=== PATIENT | female | born 1945 | race Hispanic/Latino ===

== ENCOUNTER → 2017-12-15 | Outpatient (CLI) | payer OTHER, MEDICARE ==
[~2017-12-15] MED LIST: ATOR10TA69 PO; BUDE10.2 IH; CHOL100040 PO; DEXL60CA3 PO; GLIP5POW MC; INSU100V12 SQ; LEVO50TA11 PO; LISI10TA7 PO; MELO-106 PO; NAPR-1023 PO; OMEP40CA37 PO; TRAZ-144 PO
== END | disposition home or self-care (01) ==
LOC: RAH 08:49
PROVIDERS: ATTEND Family Medicine
DX: R13.10 Dysphagia, unspecified (principal); T17.308A Unspecified foreign body in larynx causing other injury, initial encounter; X58.XXXA Exposure to other specified factors, initial encounter; Y93.89 Activity, other specified; Y92.89 Other specified places as the place of occurrence of the external cause; Y99.8 Other external cause status
CPT/HCPCS: 74230; 92611; G8996; G8997; G8998

== ENCOUNTER 2018-01-28 14:44 | Inpatient (IN) | payer OTHER, MEDICARE ==
[~2018-01-28] VITALS: Ht 149.9 cm; Wt 69.4 kg
[~2018-01-28 14:44] MED LIST changes: -BUDE10.2 IH; -CHOL100040 PO; -NAPR-1023 PO; -TRAZ-144 PO
[2018-01-28 15:27] LABS: BASOPHILS % (AUTO) 0.6 % (0.0-5.0); EOSINOPHILS % (AUTO) 0.8 % (0.0-8.0); HEMATOCRIT 42.5 % (36-48); LYMPHOCYTES % (AUTO) 30.4 % (21.0-51.0); MEAN CORPUSCULAR HEMOGLOBIN 27.4 pg (27.0-33.0); MEAN CORPUSCULAR HGB CONC 32.7 g/dL (32.0-36.0); MEAN CORPUSCULAR VOLUME 83.8 fL (79-99); MONOCYTES % (AUTO) 6.4 % (3.0-13.0); NEUTROPHILS % (AUTO) 61.8 % (40.0-77.0); PLATELET COUNT (AUTO) 273 K/uL (130-400); RED BLOOD CELL COUNT(AUTO) 5.07 MIL/uL (4.00-5.50); RED CELL DISTRIBUTION WIDTH 15.4 % (11.0-15.5); WHITE BLOOD COUNT (AUTO) 11.6 K/uL (4.8-10.8)
[2018-01-28] MEDS ORDERED: ASPIRIN 325 MG TABLET ONE (15:40)
[2018-01-28] MEDS ORDERED: SODIUM CHLORIDE 0.9% 250 ML IV ONE (15:41)
[2018-01-28 15:42] LABS: INR 0.96 (0.85-1.15); PARTIAL THROMBOPLASTIN TIME 25.4 SEC (26.3-35.5); POTASSIUM 4.6 mmol/L (3.5-5.1); PROTHROMBIN TIME 10.1 SEC (9.6-11.6)
[2018-01-28 15:47] LABS: ALBUMIN 4.1 g/dL (3.5-5.0); BILIRUBIN,TOTAL 0.3 mg/dL (0.2-1.0)
[2018-01-28] MEDS ORDERED: SODIUM CHLORIDE 0.9% 1000ML 1,000 ML IV ONE (17:29)
[2018-01-28] MEDS ORDERED: KETOROLAC TROMETHAMINE 15MG/ML ONE (18:35)
[2018-01-28] MEDS ORDERED: DEXTROSE 50%-WATER 50 ML DISP.SYRIN IV PRN (22:45)
[2018-01-28] MEDS ORDERED: GLUCAGON 1MG KIT 1 MG ML IM PRN (22:45)
[2018-01-28 23:46] VITALS: BP 153/65
[2018-01-29 03:34] VITALS: BP 154/57
[2018-01-29 03:50] LABS: HEMATOCRIT 37.3 % (36-48); MEAN CORPUSCULAR HEMOGLOBIN 27.9 pg (27.0-33.0); MEAN CORPUSCULAR HGB CONC 33.6 g/dL (32.0-36.0); NUCLEATED RED BLOOD CELLS 0.1 % (0.0-0.19); PLATELET COUNT (AUTO) 225 K/uL (130-400); RED BLOOD CELL COUNT(AUTO) 4.49 MIL/uL (4.00-5.50); RED CELL DISTRIBUTION WIDTH 15.6 % (11.0-15.5); WHITE BLOOD COUNT (AUTO) 7.9 K/uL (4.8-10.8)
[2018-01-29 04:17] LABS: HEMOGLOBIN A1C 9.5 % (4.0-6.0)
[2018-01-29 04:24] LABS: CREATININE 0.8 mg/dL (0.5-1.5); POTASSIUM 4.2 mmol/L (3.5-5.1); THYROID STIMULATING HORMONE 1.49 uIU/mL (0.36-3.74)
[2018-01-29] MEDS: INSULIN HUMULIN R 100 UNIT/ML 3ML SQ SCH ×4 (05:55→21:29)
[2018-01-29 07:00] VITALS: BP 175/70
[2018-01-29] MEDS: ENOXAPARIN SODIUM 40 MG/0.4 ML SYRINGE SQ SCH (08:19)
[2018-01-29] MEDS ORDERED: TRAZ-144 PO (08:41)
[2018-01-29] MEDS ORDERED: NAPR-1023 PO (08:41)
[2018-01-29] MEDS ORDERED: BUDE10.2 IH (08:41)
[2018-01-29] MEDS ORDERED: CHOL100040 PO (08:41)
[2018-01-29] MEDS ORDERED: NAPROXEN 500 MG TABLET PO PRN (08:45)
[2018-01-29] MEDS ORDERED: TRAZODONE HCL 50 MG TAB PO PRN (08:45)
[2018-01-29] MEDS ORDERED: HOME MEDICATION 1 EACH PO PRN (08:45)
[2018-01-29] MEDS: LEVOTHYROXINE 50 MCG TABLET PO SCH (08:56)
[2018-01-29] MEDS: CHOLECALCIFEROL 1000 UNIT PO SCH (09:00)
[2018-01-29] MEDS: LISINOPRIL 10 MG TABLET PO SCH (09:00)
[2018-01-29 11:00] VITALS: BP 164/73
[2018-01-29] MEDS ORDERED: HYDRALAZINE HCL 20 MG/ML VIAL IM PRN (11:15)
[2018-01-29 16:00] VITALS: BP 147/70
[2018-01-29 19:00] VITALS: BP 153/68
[2018-01-29] MEDS: ATORVASTATIN CALCIUM 10 MG TABLET PO SCH (20:37)
[2018-01-29] MEDS ORDERED: LORAZEPAM 1 MG TABLET PO ONE (22:30)
[2018-01-29 23:10] VITALS: BP 143/68
[2018-01-30 03:17] VITALS: BP 161/63
[2018-01-30 04:42] LABS: HEMATOCRIT 39.2 % (36-48); MEAN CORPUSCULAR HEMOGLOBIN 27.4 pg (27.0-33.0); MEAN CORPUSCULAR HGB CONC 32.8 g/dL (32.0-36.0); MEAN CORPUSCULAR VOLUME 83.6 fL (79-99); PLATELET COUNT (AUTO) 233 K/uL (130-400); RED BLOOD CELL COUNT(AUTO) 4.69 MIL/uL (4.00-5.50); RED CELL DISTRIBUTION WIDTH 15.5 % (11.0-15.5); WHITE BLOOD COUNT (AUTO) 6.7 K/uL (4.8-10.8)
[2018-01-30 04:55] LABS: CREATININE 0.8 mg/dL (0.5-1.5); POTASSIUM 4.1 mmol/L (3.5-5.1)
[2018-01-30 05:03] LABS: BAND NEUTROPHILS % (MANUAL) 8 % (0-2); EOSINOPHILS % (MANUAL) 1 % (1-6); LYMPHOCYTES % (MANUAL) 16 % (22-44); MAN.DIFF COMMENT-IMPRESSION MANUAL DIFFERENTIAL; MONOCYTES % (MANUAL) 7 % (2-9); PLATELET MORPHOLOGY COMMENT ADEQUATE; SEGMENTED NEUTROPHILS % 68 % (40-70)
[2018-01-30] MEDS: LEVOTHYROXINE 50 MCG TABLET PO SCH (05:32)
[2018-01-30] MEDS: INSULIN HUMULIN R 100 UNIT/ML 3ML SQ SCH ×4 (05:46→21:16)
[2018-01-30 06:54] VITALS: BP 147/75
[2018-01-30] MEDS ORDERED: LORAZEPAM 1 MG TABLET PO SCH (08:45)
[2018-01-30] MEDS: CHOLECALCIFEROL 1000 UNIT PO SCH (09:00)
[2018-01-30] MEDS: LISINOPRIL 10 MG TABLET PO SCH (09:57)
[2018-01-30] MEDS: ENOXAPARIN SODIUM 40 MG/0.4 ML SYRINGE SQ SCH (09:57)
[2018-01-30] MEDS: GLIPIZIDE 5 MG TABLET PO SCH ×2 (09:57→15:36)
[2018-01-30 11:00] VITALS: BP 175/75
[2018-01-30] MEDS ORDERED: CLOPIDOGREL BISULFATE 75 MG TAB PO SCH (15:30)
[2018-01-30] MEDS ORDERED: ASPIRIN 81MG TAB.CHEW PO SCH (15:30)
[2018-01-30 16:00] VITALS: BP 148/76
[2018-01-30 19:33] VITALS: BP 139/69
[2018-01-30] MEDS: ATORVASTATIN CALCIUM 10 MG TABLET PO SCH (21:13)
[2018-01-31 04:01] LABS: HEMATOCRIT 39.1 % (36-48); MEAN CORPUSCULAR HEMOGLOBIN 27.5 pg (27.0-33.0); MEAN CORPUSCULAR VOLUME 83.3 fL (79-99); PLATELET COUNT (AUTO) 242 K/uL (130-400); RED BLOOD CELL COUNT(AUTO) 4.69 MIL/uL (4.00-5.50); RED CELL DISTRIBUTION WIDTH 15.4 % (11.0-15.5); WHITE BLOOD COUNT (AUTO) 7.6 K/uL (4.8-10.8)
[2018-01-31 04:08] VITALS: BP 118/61
[2018-01-31 04:16] LABS: EOSINOPHILS % (MANUAL) 6 % (1-6); LYMPHOCYTES % (MANUAL) 44 % (22-44); MAN.DIFF COMMENT-IMPRESSION MANUAL DIFFERENTIAL; MONOCYTES % (MANUAL) 8 % (2-9); PLATELET MORPHOLOGY COMMENT ADEQUATE; SEGMENTED NEUTROPHILS % 42 % (40-70)
[2018-01-31 04:32] LABS: CREATININE 0.8 mg/dL (0.5-1.5)
[2018-01-31] MEDS: LEVOTHYROXINE 50 MCG TABLET PO SCH (06:07)
[2018-01-31] MEDS: GLIPIZIDE 5 MG TABLET PO SCH ×2 (06:10→15:44)
[2018-01-31] MEDS: INSULIN HUMULIN R 100 UNIT/ML 3ML SQ SCH ×3 (06:10→16:34)
[2018-01-31 07:00] VITALS: BP 167/64
[2018-01-31] MEDS ORDERED: ASPIRIN 81MG TAB.CHEW PO SCH (09:00)
[2018-01-31] MEDS ORDERED: CLOPIDOGREL BISULFATE 75 MG TAB PO SCH (09:00)
[2018-01-31] MEDS ORDERED: PANTOPRAZOLE SODIUM 40 MG TABLET.DR PO SCH (09:00)
[2018-01-31] MEDS: CHOLECALCIFEROL 1000 UNIT PO SCH (09:00)
[2018-01-31 11:00] VITALS: BP 145/58
[2018-01-31] MEDS: LISINOPRIL 10 MG TABLET PO SCH (12:06)
[2018-01-31] MEDS: ENOXAPARIN SODIUM 40 MG/0.4 ML SYRINGE SQ SCH (12:07)
[2018-01-31 16:00] VITALS: BP 145/64
[2018-01-31 19:30] VITALS: BP 147/63
== END 2018-01-31 21:19 | DRG 69 ==
LOC: EDH 14:44 → EDHIP 21:00 → 2DH 23:45
PROVIDERS: ADMIT Internal Medicine Nephrology; ATTEND Internal Medicine Nephrology
DX: G45.9 Transient cerebral ischemic attack, unspecified (principal); E11.9 Type 2 diabetes mellitus without complications; E03.9 Hypothyroidism, unspecified; E78.5 Hyperlipidemia, unspecified; I10 Essential (primary) hypertension; G51.0 Bell's palsy; Z79.4 Long term (current) use of insulin; Z88.0 Allergy status to penicillin
CPT/HCPCS: 36415; 70450; 70544; 70547; 70551; 74230; 80048; 80053; 80061; 82948; 83036; 84443; 84484; 85025; 85027; 85610; 85730; 92610; 92611; 93005; 93306; 99291; J1650; J1815; J1885; J7030

== ENCOUNTER → 2019-12-11 | Outpatient (CLI) | payer OTHER, MEDICARE ==
[~2019-12-11] MED LIST changes: +AEC81 PO; +ALBUHFA IH; -ATOR10TA69 PO; +AZIT250T9 PO; +BENZ-51 PO; +CHOL100040 PO; +CLOP75TA32 PO; +FLUT1AER IH; +GABA-529 PO; -GLIP5POW MC; +GLIP5TAB11 PO; -INSU100V12 SQ; +INSU3INS9 SQ; -MELO-106 PO; +METH4TAB15 PO; -OMEP40CA37 PO
== END | disposition home or self-care (01) ==
LOC: RAH 10:45
PROVIDERS: ATTEND Internal Medicine Medical Oncology
DX: D35.02 Benign neoplasm of left adrenal gland (principal); D35.01 Benign neoplasm of right adrenal gland; N28.1 Cyst of kidney, acquired; E27.8 Other specified disorders of adrenal gland
CPT/HCPCS: 76770

== ENCOUNTER → 2020-01-16 | Outpatient (CLI) | payer OTHER, MEDICARE | END | disposition home or self-care (01) | LOC: RAH 11:33 | PROVIDERS: ATTEND Internal Medicine | DX: E04.1 Nontoxic single thyroid nodule (principal) | CPT/HCPCS: 76536 ==

== ENCOUNTER 2020-04-24 06:40 | Emergency (ER) | payer OTHER, MEDICARE ==
[2020-04-24] MEDS ORDERED: ORPHENADRINE CITRATE 30 MG/ML ML ONE (07:35)
[2020-04-24] MEDS ORDERED: KETOROLAC TROMETHAMINE 15MG/ML ONE (07:35)
== END 2020-04-24 08:42 | disposition home or self-care (01) ==
LOC: EDH 06:40
DX: M54.16 Radiculopathy, lumbar region (principal); E11.9 Type 2 diabetes mellitus without complications; I10 Essential (primary) hypertension; E78.5 Hyperlipidemia, unspecified; E03.9 Hypothyroidism, unspecified; Z90.49 Acquired absence of other specified parts of digestive tract; Z90.710 Acquired absence of both cervix and uterus; Z98.890 Other specified postprocedural states; Z88.0 Allergy status to penicillin; Z79.899 Other long term (current) drug therapy
CPT/HCPCS: 72100; 73502; 96374; 96375; 99284; J1885; J2360

== ENCOUNTER 2020-04-28 07:46 | Emergency (ER) | payer OTHER, MEDICARE ==
[2020-04-28 08:26] LABS: BASOPHILS % (AUTO) 0.5 % (0.0-5.0); HEMATOCRIT 37.8 % (36-48); LYMPHOCYTES % (AUTO) 32.9 % (21.0-51.0); MEAN CORPUSCULAR HEMOGLOBIN 27.7 pg (27.0-33.0); MEAN CORPUSCULAR HGB CONC 32.5 g/dL (32.0-36.0); MEAN CORPUSCULAR VOLUME 85.1 fL (79-99); MONOCYTES % (AUTO) 10.6 % (3.0-13.0); NEUTROPHILS % (AUTO) 54.7 % (40.0-77.0); PLATELET COUNT (AUTO) 275 K/uL (130-400); RED BLOOD CELL COUNT(AUTO) 4.44 MIL/uL (4.00-5.50); RED CELL DISTRIBUTION WIDTH 14.6 % (11.0-15.5); WHITE BLOOD COUNT (AUTO) 9.6 K/uL (4.8-10.8)
[2020-04-28 08:44] LABS: CREATININE 0.9 mg/dL (0.5-1.5); POTASSIUM 4.5 mmol/L (3.5-5.1)
[2020-04-28 08:49] LABS: ALBUMIN 3.3 g/dL (3.5-5.0); BILIRUBIN,TOTAL 0.3 mg/dL (0.2-1.0); TOTAL PROTEIN, SERUM 6.8 g/dL (6.0-8.3)
[2020-04-28 09:12] LABS: APPEARANCE,URINE Clear (CLEAR); BILIRUBIN,URINE Negative (NEGATIVE); COLOR,URINE Yellow (YELLOW); GLUCOSE, URINE (UA) Negative (NEGATIVE); KETONES,URINE Negative (NEGATIVE); LEUKOCYTE ESTERASE ,URINE Moderate (NEGATIVE); NITRATE,URINE Negative (NEGATIVE); OCCULT BLOOD,URINE Negative (NEGATIVE); PROTEIN,URINE Negative (NEGATIVE); UROBILINOGEN,URINE 0.2 mg/dL (0.2-1.0)
[2020-04-28 09:19] LABS: BACTERIA,URINE Rare /HPF (None Seen); RBC,URINE None Seen /HPF (0-1)
[2020-04-28] MEDS ORDERED: HYOSCYAMINE SULFATE 0.125 MG TAB.SUBL SL ONE (10:06)
[2020-04-28] MEDS ORDERED: KETOROLAC TROMETHAMINE 15MG/ML ONE (10:06)
[2020-04-28] MEDS ORDERED: CEPHALEXIN 500 MG CAPSULE ONE (10:43)
[2020-04-28] MEDS ORDERED: DOCUSATE SODIUM 100 MG CAP PO ONE (10:43)
== END 2020-04-28 11:25 | disposition home or self-care (01) ==
LOC: EDH 07:46
DX: N39.0 Urinary tract infection, site not specified (principal); M54.5 Low back pain; K59.00 Constipation, unspecified; I10 Essential (primary) hypertension; E11.9 Type 2 diabetes mellitus without complications; E78.5 Hyperlipidemia, unspecified; E03.9 Hypothyroidism, unspecified; Z88.0 Allergy status to penicillin
CPT/HCPCS: 36415; 71045; 74176; 80053; 81001; 82550; 83880; 84484; 85025; 87088; 93005; 96374; 99285; J1885

== ENCOUNTER → 2021-01-09 | Outpatient (CLI) | payer OTHER, MEDICARE ==
[~2021-01-09] MED LIST changes: +LISI10TA24 PO; -LISI10TA7 PO
== END | disposition home or self-care (01) ==
LOC: RAH 13:24
PROVIDERS: ATTEND Obstetrics & Gynecology
DX: R10.813 Right lower quadrant abdominal tenderness (principal); Z90.710 Acquired absence of both cervix and uterus
CPT/HCPCS: 76856

== ENCOUNTER → 2021-01-15 | Outpatient (CLI) | payer OTHER, MEDICARE | END | disposition home or self-care (01) | LOC: RAH 10:55 | PROVIDERS: ATTEND Otolaryngology | DX: K21.9 Gastro-esophageal reflux disease without esophagitis (principal); R13.12 Dysphagia, oropharyngeal phase | CPT/HCPCS: 74230; 92611 ==

== ENCOUNTER 2022-05-25 03:02 | Emergency (ER) | payer OTHER, MEDICARE ==
[~2022-05-25] VITALS: Ht 149.9 cm; Wt 70.3 kg
[~2022-05-25 03:02] MED LIST changes: -BENZ-51 PO; +BENZ-70 PO
[2022-05-25 03:36] LABS: BASOPHILS % (AUTO) 0.3 % (0.0-5.0); EOSINOPHILS % (AUTO) 0.2 % (0.0-8.0); HEMATOCRIT 40.4 % (36-48); LYMPHOCYTES % (AUTO) 26.5 % (21.0-51.0); MEAN CORPUSCULAR HEMOGLOBIN 27.2 pg (27.0-33.0); MEAN CORPUSCULAR HGB CONC 32.7 g/dL (32.0-36.0); MEAN CORPUSCULAR VOLUME 83.3 fL (79-99); MONOCYTES % (AUTO) 5.6 % (3.0-13.0); NEUTROPHILS % (AUTO) 67.1 % (40.0-77.0); PLATELET COUNT (AUTO) 259 K/uL (130-400); RED BLOOD CELL COUNT(AUTO) 4.85 MIL/uL (4.00-5.50); RED CELL DISTRIBUTION WIDTH 14.8 % (11.0-15.5); WHITE BLOOD COUNT (AUTO) 12.1 K/uL (4.8-10.8)
[2022-05-25 03:40] LABS: APPEARANCE,URINE CLEAR (CLEAR); BILIRUBIN,URINE NEGATIVE (NEGATIVE); COLOR,URINE YELLOW (YELLOW); GLUCOSE, URINE (UA) 100 mg/dL (NEGATIVE); KETONES,URINE 5 mg/dL (NEGATIVE); LEUKOCYTE ESTERASE ,URINE NEGATIVE (NEGATIVE); NITRATE,URINE NEGATIVE (NEGATIVE); OCCULT BLOOD,URINE LARGE (NEGATIVE); PH,URINE 5.5 (5.0-8.0); PROTEIN,URINE 30 mg/dL (NEGATIVE); UROBILINOGEN,URINE 0.2 mg/dL (0.2-1.0)
[2022-05-25 03:50] LABS: CREATININE 1.1 mg/dL (0.5-1.5); POTASSIUM 4.6 mmol/L (3.5-5.1)
[2022-05-25 03:54] LABS: ALBUMIN 3.3 g/dL (3.5-5.0); TOTAL PROTEIN, SERUM 6.8 g/dL (6.0-8.3)
[2022-05-25] MEDS ORDERED: HYDROMORPHONE 0.5 MG SYG (0.5MG/0.5ML) IVP ONE (04:00)
[2022-05-25] MEDS ORDERED: IBUP-1493 PO (04:34)
[2022-05-25] MEDS ORDERED: FAMO-136 PO (04:35)
[2022-05-25 04:41] VITALS: BP 163/59
== END 2022-05-25 04:46 | disposition home or self-care (01) ==
LOC: EDH 03:02
DX: K80.50 Calculus of bile duct without cholangitis or cholecystitis without obstruction (principal); E11.9 Type 2 diabetes mellitus without complications; I10 Essential (primary) hypertension; E03.9 Hypothyroidism, unspecified; Z88.0 Allergy status to penicillin; Z79.899 Other long term (current) drug therapy; Z79.82 Long term (current) use of aspirin; Z79.84 Long term (current) use of oral hypoglycemic drugs; Z98.890 Other specified postprocedural states
CPT/HCPCS: 99284; 96374; 76705; 80053; 83690; 85025; 81003; 36415; J1170

== ENCOUNTER 2022-05-31 10:39 | Inpatient (IN) | payer OTHER, MEDICARE ==
[~2022-05-31] VITALS: Ht 149.9 cm; Wt 75.5 kg
[~2022-05-31 10:39] MED LIST changes: +FAMO-136 PO; +IBUP-1493 PO
[2022-05-31 12:24] LABS: BILIRUBIN,URINE Negative (NEGATIVE); COLOR,URINE Yellow (YELLOW); GLUCOSE, URINE (UA) TRACE mg/dL (NEGATIVE); KETONES,URINE 15 mg/dL (NEGATIVE); LEUKOCYTE ESTERASE ,URINE Trace (NEGATIVE); NITRATE,URINE Negative (NEGATIVE); OCCULT BLOOD,URINE Large (NEGATIVE); PH,URINE 5.5 (5.0-8.0); PROTEIN,URINE POS 2+ mg/dL (NEGATIVE); UROBILINOGEN,URINE 0.2 mg/dL (0.2-1.0)
[2022-05-31] MEDS ORDERED: 0.9%NACL 1000ML 1,000 ML IV SCH (12:30)
[2022-05-31] MEDS ORDERED: ONDANSETRON 4MG INJ IVP ONE (12:30)
[2022-05-31] MEDS ORDERED: FAMOTIDINE 20MG VIAL IV ONE (12:30)
[2022-05-31 12:32] LABS: APPEARANCE,URINE CLEAR (CLEAR)
[2022-05-31 12:35] LABS: BASOPHILS % (AUTO) 0.3 % (0.0-5.0); EOSINOPHILS % (AUTO) 0.5 % (0.0-8.0); HEMATOCRIT 36.1 % (36-48); LYMPHOCYTES % (AUTO) 10.6 % (21.0-51.0); MEAN CORPUSCULAR HEMOGLOBIN 27.3 pg (27.0-33.0); MEAN CORPUSCULAR HGB CONC 32.7 g/dL (32.0-36.0); MEAN CORPUSCULAR VOLUME 83.6 fL (79-99); NEUTROPHILS % (AUTO) 83.1 % (40.0-77.0); PLATELET COUNT (AUTO) 243 K/uL (130-400); RED BLOOD CELL COUNT(AUTO) 4.32 MIL/uL (4.00-5.50); RED CELL DISTRIBUTION WIDTH 14.7 % (11.0-15.5)
[2022-05-31 12:46] LABS: WBC,URINE 0-1 /HPF (0-1)
[2022-05-31 12:47] LABS: BACTERIA,URINE Rare /HPF (None Seen); SQUAMOUS EPITHELIAL CELL,UR Rare /HPF (0-2)
[2022-05-31] MEDS ORDERED: KETOROLAC 15MG/ML VIAL (15MG/ML) IV ONE (13:00)
[2022-05-31] MEDS ORDERED: DiphenhydrAMINE HCL 50 MG/ML VIAL IV ONE (13:00)
[2022-05-31 13:57] LABS: ALANINE AMINOTRANSFERASE 15 U/L (12-78); ALBUMIN 3.1 g/dL (3.5-5.0); ASPARTATE AMINOTRANSFERASE 17 U/L (10-37); CARBON DIOXIDE 24 mmol/L (21-32); CHLORIDE 103 mmol/L (101-111); CREATININE 1.9 mg/dL (0.5-1.5); GLOMERULAR FILTR. RATE CALC 27 mL/min (>60); GLUCOSE,RANDOM 159 mg/dL (70-105); POTASSIUM 4.9 mmol/L (3.5-5.1); SODIUM SERUM 137 mmol/L (136-145); UREA NITROGEN, BLOOD 33 mg/dL (7-18)
[2022-05-31 14:04] LABS: LIPASE < 50 U/L (114-286)
[2022-05-31] MEDS ORDERED: IOHEXOL 350 MG/ML 100ML INFUS..BTL IV ONE (14:09)
[2022-05-31] MEDS ORDERED: LIDOCAINE HCL-MPF 1% 2ML VIAL IV PRN ×2 (16:30)
[2022-05-31] MEDS ORDERED: TEMAZEPAM 15 MG CAPSULE PO PRN (16:30)
[2022-05-31] MEDS ORDERED: DOCUSATE SODIUM 100 MG CAP PO PRN (16:30)
[2022-05-31] MEDS ORDERED: CLONIDINE HCL 0.1 MG TABLET PO PRN (16:30)
[2022-05-31] MEDS ORDERED: POTASSIUM CHLORIDE 10MEQ/100ML 100 ML IV PRN ×2 (16:30)
[2022-05-31] MEDS ORDERED: DEXTROSE 50%-WATER 50 ML DISP.SYRIN IV PRN (16:30)
[2022-05-31] MEDS ORDERED: ACETAMINOPHEN 650 MG SUPPOSITORY RC PRN (16:30)
[2022-05-31] MEDS ORDERED: KCL 20 MEQ ERTAB PO PRN (16:30)
[2022-05-31] MEDS: INSULIN HUMULIN R 100 UNIT/ML 3ML SQ SCH ×2 (16:30→21:00)
[2022-05-31] MEDS ORDERED: LEVOFLOXACIN 500 MG/D5W 100 ML IV SCH (16:30)
[2022-05-31] MEDS ORDERED: HYDRALAZINE 20MG/ML VIAL IV PRN (16:30)
[2022-05-31] MEDS ORDERED: HYDROMORPHONE 1 MG INJ IVP PRN (16:30)
[2022-05-31] MEDS ORDERED: ACETAMINOPHEN 325 MG TAB PO PRN (16:30)
[2022-05-31] MEDS ORDERED: POTASSIUM CHLORIDE 10% ELIXIR 20 MEQ/15 ML UDCUP PO PRN (16:30)
[2022-05-31] MEDS ORDERED: GLUCAGON 1MG KIT 1 MG ML IM PRN (16:30)
[2022-05-31] MEDS ORDERED: HYDROMORPHONE 0.5 MG SYG (0.5MG/0.5ML) IVP PRN (17:00)
[2022-05-31] MEDS ORDERED: TAMS-1 PO (17:39)
[2022-05-31] MEDS ORDERED: GABA-529 PO (17:39)
[2022-05-31] MEDS: 0.9%NACL 1000ML 1,000 ML IV SCH (18:22)
[2022-05-31] MEDS ORDERED: LEVOFLOXACIN 500 MG/D5W 100 ML 100 ML ONE (19:02)
[2022-05-31 23:40] VITALS: BP 133/51
[2022-06-01 03:58] VITALS: BP 119/39
[2022-06-01 04:59] LABS: HEMATOCRIT 31.7 % (36-48); MEAN CORPUSCULAR HEMOGLOBIN 26.9 pg (27.0-33.0); MEAN CORPUSCULAR HGB CONC 31.9 g/dL (32.0-36.0); MEAN CORPUSCULAR VOLUME 84.3 fL (79-99); RED BLOOD CELL COUNT(AUTO) 3.76 MIL/uL (4.00-5.50); RED CELL DISTRIBUTION WIDTH 15.2 % (11.0-15.5); WHITE BLOOD COUNT (AUTO) 8.5 K/uL (4.8-10.8)
[2022-06-01 05:11] LABS: CREATININE 1.5 mg/dL (0.5-1.5); PHOSPHORUS 3.4 mg/dL (2.5-4.9); POTASSIUM 4.4 mmol/L (3.5-5.1)
[2022-06-01] MEDS: INSULIN HUMULIN R 100 UNIT/ML 3ML SQ SCH ×4 (06:52→23:29)
[2022-06-01 07:47] LABS: INR 1.01 (0.85-1.15)
[2022-06-01 07:49] LABS: PARTIAL THROMBOPLASTIN TIME 29.3 SEC (26.3-35.5)
[2022-06-01 08:00] VITALS: BP 139/68
[2022-06-01] MEDS: TAMSULOSIN HCL 0.4 MG CAP.ER.24H PO SCH (09:00)
[2022-06-01] MEDS: POLYETHYLENE GLYCOL 3350 17 GM POWD.PACK PO SCH (09:00)
[2022-06-01] MEDS: PANTOPRAZOLE 40 MG/VIAL IVP SCH (09:42)
[2022-06-01] MEDS: 0.9%NACL 1000ML 1,000 ML IV SCH ×2 (09:44→18:22)
[2022-06-01 11:46] VITALS: BP 137/51
[2022-06-01 16:00] VITALS: BP 149/62
[2022-06-01] MEDS: ALBUTEROL 0.083% 2.5 MG/3 ML INH IH SCH ×2 (18:20→22:54)
[2022-06-01] MEDS: LEVOFLOXACIN 250 MG/D5W 50ML 50 ML IVPB SCH (18:22)
[2022-06-01 20:15] VITALS: BP 146/65
[2022-06-01 23:39] VITALS: BP 151/47
[2022-06-02] MEDS: ALBUTEROL 0.083% 2.5 MG/3 ML INH IH SCH ×3 (02:20→10:25)
[2022-06-02 03:53] VITALS: BP 119/43
[2022-06-02 05:26] LABS: BASOPHILS % (AUTO) 0.4 % (0.0-5.0); EOSINOPHILS % (AUTO) 0.7 % (0.0-8.0); LYMPHOCYTES % (AUTO) 20.5 % (21.0-51.0); MEAN CORPUSCULAR HEMOGLOBIN 27.4 pg (27.0-33.0); MEAN CORPUSCULAR HGB CONC 32.3 g/dL (32.0-36.0); MEAN CORPUSCULAR VOLUME 84.9 fL (79-99); MONOCYTES % (AUTO) 12.3 % (3.0-13.0); NEUTROPHILS % (AUTO) 65.7 % (40.0-77.0); PLATELET COUNT (AUTO) 240 K/uL (130-400); RED BLOOD CELL COUNT(AUTO) 3.65 MIL/uL (4.00-5.50); RED CELL DISTRIBUTION WIDTH 15.3 % (11.0-15.5); WHITE BLOOD COUNT (AUTO) 10.1 K/uL (4.8-10.8)
[2022-06-02 05:42] LABS: ALBUMIN 2.4 g/dL (3.5-5.0); CREATININE 1.2 mg/dL (0.5-1.5); MAGNESIUM 1.8 mg/dL (1.80-2.40); POTASSIUM 4.2 mmol/L (3.5-5.1); TOTAL PROTEIN, SERUM 5.9 g/dL (6.0-8.3)
[2022-06-02] MEDS: INSULIN HUMULIN R 100 UNIT/ML 3ML SQ SCH ×4 (06:08→21:04)
[2022-06-02 07:02] VITALS: BP 139/53
[2022-06-02] MEDS: TAMSULOSIN HCL 0.4 MG CAP.ER.24H PO SCH (10:06)
[2022-06-02] MEDS: POLYETHYLENE GLYCOL 3350 17 GM POWD.PACK PO SCH (10:06)
[2022-06-02] MEDS: PANTOPRAZOLE 40 MG/VIAL IVP SCH (10:06)
[2022-06-02 12:03] VITALS: BP 160/75
[2022-06-02 16:03] VITALS: BP 163/68
[2022-06-02] MEDS: LEVOFLOXACIN 250 MG/D5W 50ML 50 ML IVPB SCH (18:16)
[2022-06-02] MEDS: 0.9%NACL 1000ML 1,000 ML IV SCH (21:04)
[2022-06-02 21:41] VITALS: BP 160/65
[2022-06-03 00:01] VITALS: BP 140/57
[2022-06-03 04:39] VITALS: BP 154/60
[2022-06-03 05:22] LABS: BASOPHILS % (AUTO) 0.5 % (0.0-5.0); EOSINOPHILS % (AUTO) 1.4 % (0.0-8.0); HEMATOCRIT 31.7 % (36-48); LYMPHOCYTES % (AUTO) 20.8 % (21.0-51.0); MEAN CORPUSCULAR HEMOGLOBIN 27.3 pg (27.0-33.0); MEAN CORPUSCULAR HGB CONC 32.2 g/dL (32.0-36.0); MEAN CORPUSCULAR VOLUME 84.8 fL (79-99); MONOCYTES % (AUTO) 11.8 % (3.0-13.0); NEUTROPHILS % (AUTO) 64.9 % (40.0-77.0); PLATELET COUNT (AUTO) 240 K/uL (130-400); RED BLOOD CELL COUNT(AUTO) 3.74 MIL/uL (4.00-5.50); RED CELL DISTRIBUTION WIDTH 15.2 % (11.0-15.5); WHITE BLOOD COUNT (AUTO) 10.1 K/uL (4.8-10.8)
[2022-06-03 05:43] LABS: ALBUMIN 2.4 g/dL (3.5-5.0)
[2022-06-03] MEDS: INSULIN HUMULIN R 100 UNIT/ML 3ML SQ SCH ×4 (06:35→21:05)
[2022-06-03 07:02] VITALS: BP 137/62
[2022-06-03] MEDS: PANTOPRAZOLE 40 MG/VIAL IVP SCH (10:13)
[2022-06-03] MEDS: TAMSULOSIN HCL 0.4 MG CAP.ER.24H PO SCH (10:28)
[2022-06-03] MEDS: POLYETHYLENE GLYCOL 3350 17 GM POWD.PACK PO SCH (10:28)
[2022-06-03 16:00] VITALS: BP 145/43
[2022-06-03] MEDS: LEVOFLOXACIN 250 MG/D5W 50ML 50 ML IVPB SCH (18:12)
[2022-06-03 20:26] VITALS: BP 147/59
[2022-06-04] VITALS (14 sets, daily range): BP systolic 140–167; BP diastolic 42–65
[2022-06-04 05:16] LABS: BASOPHILS % (AUTO) 0.4 % (0.0-5.0); EOSINOPHILS % (AUTO) 1.9 % (0.0-8.0); HEMATOCRIT 29.3 % (36-48); LYMPHOCYTES % (AUTO) 20.9 % (21.0-51.0); MEAN CORPUSCULAR HEMOGLOBIN 27.3 pg (27.0-33.0); MEAN CORPUSCULAR HGB CONC 32.4 g/dL (32.0-36.0); MEAN CORPUSCULAR VOLUME 84.2 fL (79-99); MONOCYTES % (AUTO) 11.8 % (3.0-13.0); NEUTROPHILS % (AUTO) 64.4 % (40.0-77.0); PLATELET COUNT (AUTO) 233 K/uL (130-400); RED BLOOD CELL COUNT(AUTO) 3.48 MIL/uL (4.00-5.50); RED CELL DISTRIBUTION WIDTH 15.2 % (11.0-15.5)
[2022-06-04 05:31] LABS: ALBUMIN 2.2 g/dL (3.5-5.0); CREATININE 0.9 mg/dL (0.5-1.5); POTASSIUM 3.8 mmol/L (3.5-5.1); TOTAL PROTEIN, SERUM 5.8 g/dL (6.0-8.3)
[2022-06-04] MEDS: INSULIN HUMULIN R 100 UNIT/ML 3ML SQ SCH ×4 (06:32→22:07)
[2022-06-04] MEDS ORDERED: LIDOCAINE HCL 1% 10 ML VIAL ONE (08:28)
[2022-06-04] MEDS ORDERED: IODIXANOL 320 MG/ML 100 ML VIAL ONE (08:28)
[2022-06-04] MEDS: PANTOPRAZOLE 40 MG/VIAL IVP SCH ×2 (08:40→09:48)
[2022-06-04] MEDS: TAMSULOSIN HCL 0.4 MG CAP.ER.24H PO SCH ×2 (08:40→09:48)
[2022-06-04] MEDS: POLYETHYLENE GLYCOL 3350 17 GM POWD.PACK PO SCH ×2 (08:40→09:48)
[2022-06-04] MEDS: FLUTICASONE/VILANTEROL 1 EACH AER.POW.BA IH SCH (08:41)
[2022-06-04] MEDS ORDERED: FENTANYL CITRATE PF 50 MCG/1 ML 2ML VIAL ONE (08:49)
[2022-06-04] MEDS ORDERED: MIDAZOLAM HCL 1 MG/ML 2ML VIAL ONE (08:49)
[2022-06-04] MEDS: 0.9%NACL 1000ML 1,000 ML IV SCH ×3 (09:48→23:18)
[2022-06-04] MEDS: LEVOFLOXACIN 250 MG/D5W 50ML 50 ML IVPB SCH (17:13)
[2022-06-05] VITALS (8 sets, daily range): BP systolic 93–179; BP diastolic 31–58
[2022-06-05] MEDS: 0.9%NACL 1000ML 1,000 ML IV SCH ×2 (03:10→15:15)
[2022-06-05 05:18] LABS: BASOPHILS % (AUTO) 0.4 % (0.0-5.0); EOSINOPHILS % (AUTO) 0.7 % (0.0-8.0); HEMATOCRIT 30.4 % (36-48); LYMPHOCYTES % (AUTO) 20.6 % (21.0-51.0); MEAN CORPUSCULAR HEMOGLOBIN 27.6 pg (27.0-33.0); MEAN CORPUSCULAR HGB CONC 32.6 g/dL (32.0-36.0); MEAN CORPUSCULAR VOLUME 84.7 fL (79-99); MONOCYTES % (AUTO) 12.2 % (3.0-13.0); NEUTROPHILS % (AUTO) 65.5 % (40.0-77.0); PLATELET COUNT (AUTO) 262 K/uL (130-400); RED BLOOD CELL COUNT(AUTO) 3.59 MIL/uL (4.00-5.50); WHITE BLOOD COUNT (AUTO) 11.6 K/uL (4.8-10.8)
[2022-06-05 05:40] LABS: ALBUMIN 2.2 g/dL (3.5-5.0); POTASSIUM 3.7 mmol/L (3.5-5.1); TOTAL PROTEIN, SERUM 6.1 g/dL (6.0-8.3)
[2022-06-05] MEDS: INSULIN HUMULIN R 100 UNIT/ML 3ML SQ SCH ×4 (07:30→21:11)
[2022-06-05] MEDS: FLUTICASONE/VILANTEROL 1 EACH AER.POW.BA IH SCH (09:18)
[2022-06-05] MEDS: POLYETHYLENE GLYCOL 3350 17 GM POWD.PACK PO SCH (09:19)
[2022-06-05] MEDS: TAMSULOSIN HCL 0.4 MG CAP.ER.24H PO SCH (09:19)
[2022-06-05] MEDS: PANTOPRAZOLE 40 MG/VIAL IVP SCH (09:19)
[2022-06-05] MEDS: LEVOFLOXACIN 250 MG/D5W 50ML 50 ML IVPB SCH (16:34)
[2022-06-06] VITALS (7 sets, daily range): BP systolic 136–161; BP diastolic 43–80
[2022-06-06] MEDS ORDERED: HYDROMORPHONE 1 MG INJ IVP PRN (00:30)
[2022-06-06] MEDS: ONDANSETRON 4MG INJ IVP PRN ×2 (01:32→08:49)
[2022-06-06] MEDS: 0.9%NACL 1000ML 1,000 ML IV SCH ×2 (05:50→16:21)
[2022-06-06 06:16] LABS: BASOPHILS % (AUTO) 0.3 % (0.0-5.0); EOSINOPHILS % (AUTO) 0.1 % (0.0-8.0); HEMATOCRIT 28.3 % (36-48); LYMPHOCYTES % (AUTO) 12.1 % (21.0-51.0); MEAN CORPUSCULAR HEMOGLOBIN 27.5 pg (27.0-33.0); MEAN CORPUSCULAR HGB CONC 32.9 g/dL (32.0-36.0); MEAN CORPUSCULAR VOLUME 83.7 fL (79-99); MONOCYTES % (AUTO) 8.4 % (3.0-13.0); NEUTROPHILS % (AUTO) 78.6 % (40.0-77.0); PLATELET COUNT (AUTO) 245 K/uL (130-400); RED BLOOD CELL COUNT(AUTO) 3.38 MIL/uL (4.00-5.50); WHITE BLOOD COUNT (AUTO) 11.2 K/uL (4.8-10.8)
[2022-06-06 06:45] LABS: ALBUMIN 2.1 g/dL (3.5-5.0); POTASSIUM 3.9 mmol/L (3.5-5.1); TOTAL PROTEIN, SERUM 5.8 g/dL (6.0-8.3)
[2022-06-06] MEDS: INSULIN HUMULIN R 100 UNIT/ML 3ML SQ SCH ×4 (06:49→22:25)
[2022-06-06] MEDS: POLYETHYLENE GLYCOL 3350 17 GM POWD.PACK PO SCH (08:49)
[2022-06-06] MEDS: TAMSULOSIN HCL 0.4 MG CAP.ER.24H PO SCH (08:49)
[2022-06-06] MEDS: PANTOPRAZOLE 40 MG/VIAL IVP SCH (08:49)
[2022-06-06] MEDS: FLUTICASONE/VILANTEROL 1 EACH AER.POW.BA IH SCH (08:56)
[2022-06-06] MEDS: LEVOFLOXACIN 250 MG/D5W 50ML 50 ML IVPB SCH (16:53)
[2022-06-07 03:17] VITALS: BP 128/44
[2022-06-07 05:24] LABS: BASOPHILS % (AUTO) 0.4 % (0.0-5.0); EOSINOPHILS % (AUTO) 1.5 % (0.0-8.0); HEMATOCRIT 28.7 % (36-48); LYMPHOCYTES % (AUTO) 22.6 % (21.0-51.0); MEAN CORPUSCULAR HEMOGLOBIN 27.5 pg (27.0-33.0); MEAN CORPUSCULAR HGB CONC 33.1 g/dL (32.0-36.0); MEAN CORPUSCULAR VOLUME 82.9 fL (79-99); MONOCYTES % (AUTO) 11.4 % (3.0-13.0); NEUTROPHILS % (AUTO) 63.5 % (40.0-77.0); PLATELET COUNT (AUTO) 264 K/uL (130-400); RED BLOOD CELL COUNT(AUTO) 3.46 MIL/uL (4.00-5.50); RED CELL DISTRIBUTION WIDTH 15.2 % (11.0-15.5); WHITE BLOOD COUNT (AUTO) 10.8 K/uL (4.8-10.8)
[2022-06-07 05:54] LABS: ALBUMIN 2.1 g/dL (3.5-5.0); CREATININE 0.9 mg/dL (0.5-1.5); MAGNESIUM 1.6 mg/dL (1.80-2.40); POTASSIUM 3.5 mmol/L (3.5-5.1); TOTAL PROTEIN, SERUM 5.8 g/dL (6.0-8.3)
[2022-06-07] MEDS: INSULIN HUMULIN R 100 UNIT/ML 3ML SQ SCH ×3 (07:30→17:15)
[2022-06-07 08:47] VITALS: BP 158/45
[2022-06-07] MEDS: PANTOPRAZOLE 40 MG/VIAL IVP SCH (10:16)
[2022-06-07] MEDS: FLUTICASONE/VILANTEROL 1 EACH AER.POW.BA IH SCH (10:16)
[2022-06-07] MEDS: POLYETHYLENE GLYCOL 3350 17 GM POWD.PACK PO SCH (10:16)
[2022-06-07] MEDS: TAMSULOSIN HCL 0.4 MG CAP.ER.24H PO SCH (10:16)
[2022-06-07 12:17] VITALS: BP 172/69
[2022-06-07] MEDS ORDERED: MAGNESIUM 2GM PREMIX 50ML 50 ML IV PRN (13:00)
[2022-06-07] MEDS ORDERED: TAMS-1 PO (16:02)
[2022-06-07] MEDS ORDERED: LEVO750T46 PO (16:07)
[2022-06-07 16:53] VITALS: BP 157/72
[2022-06-07] MEDS: 0.9%NACL 1000ML 1,000 ML IV SCH (17:13)
[2022-06-07] MEDS: LEVOFLOXACIN 250 MG/D5W 50ML 50 ML IVPB SCH (17:13)
== END 2022-06-07 19:15 | disposition home or self-care (01) | DRG 694 ==
LOC: EDH 10:39 → EDHIP 16:29 → 3BH 23:20
PROVIDERS: ADMIT Internal Medicine Critical Care Medicine; ATTEND Internal Medicine Critical Care Medicine
PROC: 0T9030Z Drainage of Right Kidney with Drainage Device, Percutaneous Approach (ICD-10-PCS; principal; 2022-06-04)
PROC: BT111ZZ Fluoroscopy of Right Kidney using Low Osmolar Contrast (ICD-10-PCS; 2022-06-04)
DX: N13.2 Hydronephrosis with renal and ureteral calculous obstruction (principal); N17.9 Acute kidney failure, unspecified; I10 Essential (primary) hypertension; E66.9 Obesity, unspecified; Z20.822 Contact with and (suspected) exposure to COVID-19; Z88.0 Allergy status to penicillin; E78.00 Pure hypercholesterolemia, unspecified; Z87.442 Personal history of urinary calculi; Z90.710 Acquired absence of both cervix and uterus; Z86.73 Personal history of transient ischemic attack (TIA), and cerebral infarction without residual deficits; E11.65 Type 2 diabetes mellitus with hyperglycemia; Z68.31 Body mass index [BMI] 31.0-31.9, adult
CPT/HCPCS: 10030; 36415; 50432; 71045; 74177; 80048; 80053; 81001; 82948; 83690; 83735; 84100; 84484; 85025; 85027; 85610; 85730; 87040; 87635; 94640; 94664; 99156; 99157; C1729; C1894; C9113; G0378; J1170; J1200; J1644; J1815; J1885; J1956; J2250; J2405; J3010; J3475; J3490; J7030; Q9967

== ENCOUNTER → 2024-05-10 | Outpatient (CLI) | payer OTHER, MEDICARE ==
[~2024-05-10] MED LIST changes: -AZIT250T9 PO; +BENZ-226 PO; -BENZ-70 PO; -GLIP5TAB11 PO; +GLIP5TAB15 PO; +LEVO750T68 PO; -METH4TAB15 PO; +TAMS-1 PO
== END | disposition home or self-care (01) ==
LOC: SHCH 12:55
PROVIDERS: ATTEND Internal Medicine Cardiovascular Disease
DX: I08.3 Combined rheumatic disorders of mitral, aortic and tricuspid valves (principal); I87.1 Compression of vein; I87.2 Venous insufficiency (chronic) (peripheral); I73.9 Peripheral vascular disease, unspecified; I25.9 Chronic ischemic heart disease, unspecified; R07.9 Chest pain, unspecified; I31.39 Other pericardial effusion (noninflammatory)
CPT/HCPCS: 93306; 93925; 93970